=== PATIENT | female | born 1955 | race Caucasian/White ===

== ENCOUNTER → 2024-08-12 15:19 | Outpatient (REF) | payer OTHER, SELFPAY ==
[2024-08-12 15:54] LABS: % Basophils 0.9 % (0-2); % Eosinophils 1.6 % (0-6); % Lymphocytes 47.8 % (20.5-51.1); % Monocytes 7.8 % (1.7-9.3); % Neutrophils 41.9 % (42.2-75.2); Absolute Eosinophils 0.1 10^3/uL (0-0.7); Absolute Lymphocytes 2.2 10^3/uL (1.2-3.4); Absolute Monocytes 0.4 10^3/uL (0.1-0.6); Absolute Neutrophils 1.9 10^3/uL (1.4-6.5); Hematocrit 37.9 % (37.0-47.0); Hemoglobin 12.9 g/dL (12.0-16.0); Mean Corpuscular Hgb 31.7 pg (27.0-31.0); Mean Corpuscular Volume 93.1 fL (81.0-99.0); Mean Platelet Volume 8.6 fL (7.4-10.4); Nucleated Red Blood Cells % 0 %; Platelet Count 208 10^3/uL (130-400); Red Blood Cell Count 4.07 10^6/uL (4.20-5.40); Red Cell Dist. Width 11.8 % (11.5-14.5); White Blood Cell Count 4.5 10^3/uL (4.8-10.8)
[2024-08-12 16:16] LABS: Blood Urea Nitrogen 11 mg/dl (7-17); Calcium 9.6 mg/dl (8.4-10.2); Carbon Dioxide 29 mmol/L (22-30); Chloride 107 mmol/L (98-107); Glucose 98 mg/dl (70-99); Sodium 141 mmol/L (135-145); eGFR > 60.00
== END ==
LOC: RCS 15:19
PROVIDERS: ATTENDING PHYSICIAN Specialist; FAMILY PHYSICIAN Orthopaedic Surgery
DX: Z01.818 Encounter for other preprocedural examination (principal)
CPT/HCPCS: 36415; 80048; 85025; 93005